=== PATIENT | female | born 1945 | race Caucasian/White ===

== ENCOUNTER 2021-10-10 13:41 | Outpatient (CLI) | payer MEDICARE, SELFPAY ==
--- OUTSIDE RECORDS SUMMARY | 2021-08-11 09:53 | XMS_ITS | Continuity of Care Document ---
:1945 Author Care Team Providers Name Role Phone MD Cynthia E Attending Physician MD Farhat W Primary Care Physician Chief Complaint and Reason for Visit Chief Complaint Abdominal Pain (Female) Reason for Visit [id number] r/o sepsis r/o uti dehydration Health Concerns Concerns Review problems and other documentation throughout for Health Concerns. Allergies, Adverse Reactions, Alerts Allergen Type Severity Reaction Last Verified Status Updated Meperidine Allergy Severe convulsions, July 13, Yes Active SOB, RASH 2021 Metronidazole Allergy Severe urticaria and July 13, Yes Ac tive pruritis 2021 Morphine Allergy Severe DIFFICULTY July 13, Yes Active BREATHING, RASH 2021 Penicillin v Allergy Unknown RASH, SOB July 13, Yes Active 2021 Pseudoephedrine Adverse Moderate jittery, heart July 13, Yes Active Reaction palpatations 2021 Loratadine Adverse Moderate jittery, heart July 13, Yes Acti ve Reaction palpatations 2021 Paroxetine Adverse Unknown dyspnea July 13, Yes Active Reaction 2021 Latex Allergy Moderate RASH, ITCHY, July 13, Yes Active STATES SKIN 2021 PEELS OFF Sulfa drugs Allergy Unknown RASH, SOB July 13, Yes Active 2021 Social History Smoking Status Status Start Date End Date Date of Observat ion Ex-smoker (finding) July 13 3:33pm Observation Status Observation Response Date of Response History provided by Patient April 22, 2017 2:05 pm Where do you live? Own home/apt April 22, 2017 2:05 pm With whom do you live? Spouse April 22, 2017 2 :05pm Specify additional service THERAPY WILL WORK WITH PATIENT Se pt2020 1:44pm needs Specify additional assistance granddaughter is also staying October 19, 2020 1:44pm needed with them to help as needed Additional Data Assigned Sex Female Problems Active Problems Medical Problem Onset Date Status Osteoporosis February 09, 2009 Active Scoliosis Active Subclinical hypothyroidism Resolved Prolonged Q-T interval on ECG Active Fatty infiltration of liver Active Post traumatic stress disorder Active (PTSD) Generalized anxiety disorder with Active panic attacks Tubular adenoma of colon Active Healthcare maintenance Active Status post hysterectomy February 09, 2009 Resolved s p removal cysts breast February 09, 2009 Resolved History of surgical removal of Resolved ganglion cyst History of tympanoplasty of right Resolv ed ear History of bilateral cataract Resolved extraction History of partial colectomy Resolved History of appendectomy 2017 Resolved History of total hip arthroplasty Resolv ed Medications Medication Status Dose Units Route Directions Qty Days Start End Ins tructions Date Date Acetaminophe Active 500-1 MG PO Every 6 Sept n 000 Hours as er , needed 2020 7:28am Cholecalcife Active 2000 UNIT OR Daily rol (Vitamin D3) 2,000 Unit CAP Lactobacillu Active 1 CAP PO Daily s (Azo Dual Protection Urina) 1 Cap CAP Lorazepam Active 0.5 MG PO Twice A Day 40 Februar as needed y 2021 4:31pm Menaquinone- Active 100 MCG PO Daily 7 (Vitamin K2) 100 Mcg CAP Acetaminophe Disconti 1-2 TAB PO Every 4-6 15 Novembe Dece mb n W/ Codeine nued Hours as r 6th, er (Codeine/Samir needed 2018 05, taminophen) 3:48pm 2018 1 Tab TAB 12:44p m Albuterol Disconti 1-2 PUFF INH Every 4 April (Ventolin nued Hours as er , Hfa) 90 Mcg needed 2017 DOSE 2016 8:02am 4:06pm Albuterol Disconti 2 PUFF INH Every 4 April Sulfate nued Hours as , (Proair Hfa) needed 2019 2021 90 Mcg/Puff 9:49am 3:26pm INH Alprazolam Disconti 1-2 TAB PO Every 6-8 September nued Hours as 1st, y needed 2016, 2:47pm 2017 3:47pm Alprazolam Disconti 1-2 TAB PO Every 6-8 September nued Hours as y 1st, 1st, needed 2016 2016 11:46am 2:47pm Alprazolam Disconti 1-2 TAB PO Every 6-Augustua nued Hours as , ry needed 2015 02, 12:07pm 2016 11:46a m Alprazolam Disconti 1-2 TAB PO Every -November nued Hours as , , needed 2014 2015 5:29pm 12:07p m Alprazolam Disconti 1-2 TAB PO Every -Novemberobe nued Hours as , r needed 2014, 3:00pm 2014 5:29pm Alprazolam Disconti 1-2 TAB PO Every -Novemberobe nued Hours as , r needed 2013, 11:09am 2014 3:00pm Alprazolam Disconti 1-2 TAB PO Every -Aprilobe nued Hours as , r needed 2013, 2:49pm 2013 11:09a m Alprazolam Disconti 1-2 TABS PO Three Times June nued A Day as , , needed 2012 2013 9:55am 2:11pm Aspirin Disconti 81 MG PO Twice A Day For deep vein clot prevention post-surgery. Start this nued er , r medication a fter completing Rivaroxaban. Take twice daily. 2020 14, 7:28am 2020 1:50pm Aspirin Disconti 81 MG PO Daily 100 nued y 2018 3:04pm Aspirin Disconti 81 MG PO Daily April nued 2017 8:02am Aspirin Disconti 81 MG PO Daily 100 Decemb nued er 2016 3:37pm Azithromycin Disconti 250-5 MG PO Daily 5 00 mg x 1 nued 00 er day then 250 , mg daily x 4 2015 2016 days 4:06pm 11:16a m Azithromycin Disconti 250 MG PO As Directed Ju ly 2 tabs today nued y , then 1 tab 2011 2011 daily x 4 1:42pm 9:59am days. Azithromycin Disconti 0 PO Daily May TAKE 500 MG (Zithromax) nued , , DAY ONE 250 Mg TAB 2010 2010 FOLLOWED BY 1:34pm 1:11pm 250 MG DAILY FOR 4 MORE DAYS Azithromycin Disconti 0 PO Daily Decembe Decemb T DARIANA 500 MG (2 TABLETS) BY MOUTH TODAY, THEN 250 MG (1 TABLET) BY (Zithromax) nued r , er MOUTH ONCE DAILY FOR 4 MORE DAYS. 250 Mg TAB 2008, 9:46am 2008 9:17am Bupropion Disconti 150 MG PO Daily Januar Hcl nued r , y (Bupropion 2016, Hcl Xl (24 3:46pm 2018 Hr)) 150 Mg 3:47pm TABCR Calcium/Ely Disconti 2 EA PO Daily September D nued 2011 1:11pm Cefdinir Disconti 300 MG PO Twice Daily November nued For 7 Days , er 2018 06, 4:14pm 2018 2:27pm Cephalexin Disconti 500 MG PO Three Times August nued A Day , tiarra 2018, 11:23pm 2018 2:00pm Cholecalcife Disconti 2000 UNIT PO Daily rol (Vitamin nued er D) 2,000 4th, Unit TAB 2018 2:17pm Cholecalcife Disconti 2000 UNIT PO Daily April rol (Vitamin nued 5th, D) 1,000 2017 Unit TAB 8:02am Cholecalcife Disconti 1000 UNIT PO Daily September rol (Vitamin nued 10th, D3) 1,000 2011 Unit TAB 1:11pm Cholestyrami Disconti 4 GM PO Daily as June 4 grams daily (can divide dose into 1-3x/day); adjust as ne nued needed , , needed. 2020 2020 3:54pm 2:23pm Cholestyrami Disconti 2-4 GM PO Daily as June ne nued needed , 2018 1:45pm 3:02pm Ciprofloxaci Disconti 2-4 DROP AFFEAR Tid X 7 July TO AFFECTED n Hcl nued Days 8th, , EYE(S) (Ciprofloxac 2016 2017 in Ophth 9:07am 2:15pm Soln) 0.3 % DWIGHT Ciprofloxaci Disconti 500 MG PO Twice A Day 6 Novembe No vemb n Hcl nued r 8th, er (Cipro) 500 2013, Mg TAB 10:25am 2013 2:29pm Ciprofloxaci Disconti 500 MG PO Twice A Day November brua n Hcl nued 4th, ry (Cipro) 500 2012, Mg TAB 12:01pm 2013 11:48a m Coenzyme Q10 Disconti 10 MG PO Daily June (Ubidecareno nued 16, ne) (Co Q 2010 11) 10 Mg 1:11pm CAP Covid-19 Disconti 30 MCG IM Once 1 Novem (Sars-Cov-2) nued r 30, er Mrna Vir 2020, (Pfizer-Bion 11:34am 2020 tech 11:36a Covid-19) 30 m Mcg/0.3 Ml INJ Cranberry Disconti 2 CAPSULE OR Daily (Vaccinium nued er Macrocarp 4th, (Cranberry 2018 Extract) 200 2:17pm Mg CAP Cranberry Disconti 2 CAPSULE OR Daily April (Vaccinium nued 5th, Macrocarp 2018 (Cranberry 8:02am Extract) 200 Mg CAP Cranberry-Vi Disconti 1 C OR Septem tamin nued tiarra C-Vitamin E , (Cranberry 2020 Plus Vitamin 1:38pm C) C CAP Cyclobenzapr Disconti 5 MG PO Bedtime as Mar charity ine Hcl nued needed er ry 27, , 2015 2016 2:06pm 11:16a m Diphtheria/T Disconti 0.5 ML IM Once June etanus/Acell nued , 16, Pertussis 2010 2010 (Adacel) 0.5 1:28pm 2:03pm Ml INJ Docusate Disconti 100 MG PO Daily June Sodium nued , (Colace) 100 2018 Mg CAP 1:27pm Doxycycline Disconti 100 MG PO Twice Daily February charity Hyclate nued For 7 Days , ry 2018 4th, 3:39pm 2018 11:59a m Doxycycline Disconti 100 MG PO Twice Daily February uar Hyclate nued For 7 Days , y 2018 3:38pm 3:39pm Duloxetine Disconti Januar Hcl nued y 2018 3:04pm Enoxaparin Disconti 80 MG SUBQ Twice A Day 10 Februa Sodium nued ry (Lovenox) 80 2nd, Mg/0.8 Ml 2017 SOLN 3:29pm Enoxaparin Disconti 80 MG SUBQ Twice A Day 3 Dece mb Sodium nued er er (Lovenox) 80 , , Mg/0.8 Ml 2016 2016 SOLN 10:19pm 3:37pm Erythromycin Disconti 500 MG OR Three Times 6 1 Februar [employer] nued A Day y , 2017 3:49pm 8:02am Estradiol Disconti 1 GRAMS PV Twice .5 June Apply thin (Estrace nued Weekly , , layer to Vaginal 2020 2020 affected are a Cream) 0.1 3:54pm 2:23pm twice a week. Mg/Gm CRE Estradiol Disconti 0.5 MG VA As Directed May 0 .5mg vaginally nightly x 2weeks; then 0.5mg twice a week x Vaginal nued , 14, 8 months. (Estradiol) 2018 2018 0.1 Mg/Gm 4:27pm 1:30pm CRE Flaxseed Disconti 1000 MG PO Daily September (Linseed) , (Flax Seed 2012 Oil) 1,000 1:11pm Mg CAP Sharon Disconti 550 MG OR Daily (Zingiber nued er Officinalis) , (Sharon 2019 Root) 550 Mg 2:17pm CAP Sharon Disconti 550 MG OR Daily April (Zingiber nued , Officinalis) 2017 (Sharon 8:02am Root) 550 Mg CAP Hyoscyamine Disconti 0.125 MG SL Every 4 30 Februa PO /SL Sulfate nued Hours as ry needed 2017 3:00pm Hyoscyamine Disconti 0.125 MG PO Every 4 Decemb Sulfate nued Hours as er 2nd, er (Levsin) needed 2016 02, 0.125 Mg TAB 3:55pm 2016 3:37pm Hyoscyamine Disconti 0.375 ER OR Twice A Day November Sulfate nued as needed (Hyoscyamine 2014 27th, Sulfate Er) 11:23am 2016 0.375 Er TAB 1:44pm Influenza A Disconti 0.5 ML IM Once 1 Novembe Novemb (H1n1) nued r 5th, er Monoval 2008 5th, Vaccine 6:00pm 2009 (Influenza A 6:04pm (H1n1) Vaccine) INJ Influenza Disconti 0.5 ML IM Once 1 Novembe Novemb Virus Vac nued r 4th, er Recomb Hem 2018 4th, (Flublok 3:21pm 2018 Quadrivalent 3:23pm 2018 0.5 Ml) 1 Inj INJ Influenza Disconti 0.5 ML IM Once Novemberobe Virus Vacc nued 14th, r Triv Types 2009 14th, A&B (Fluarix 3:51pm 2009) 0.5 4:12pm Ml INJ Influenza Disconti 0.5 ML IM Once 1 Novembe Novemb Virus Vacc nued r 5th, er Triv Types 2008 5th, A&B (Fluzone 6:00pm 2008 (Pres-Free) 6:04pm Over 36 Month) 0.5 Ml SYR Influenza Disconti 0.5 ML IM Once Februaryuar Virus Vacc nued 2nd, y 2nd, Triv Types 2008 2008 A&B 11:41am 11:45a (Fluarix) m 0.5 Ml INJ Influenza Disconti 0.5 ML IM Once 1 Novembe Novemb Virus Vacc nued r 26th, er Triv Types 2006th, A&B 3:27pm 2006 (Fluarix) 5:18pm 0.5 Ml INJ Influenza Disconti 0.5 ML IM Once 1 Novembe Novemb Virus nued r 8th, er Vaccine 2010 09, (Fluzone Pf 2:30pm 2010 [id number] 2:33pm (0.5 Ml)) 0.5 Ml INJ Influenza Disconti 0.5 ML IM Once Februaryuar Virus nued 8th, y 8th, Vaccine 2018 2018 Split 3:52pm 3:53pm (Afluria Pf [id number] 0.5 Ml) 1 Inj INJ Influenza Disconti 0.5 ML IM Once 1 Novembe Novemb Virus nued r 21st, er Vaccine 2016, Split 4:03pm 2016 (Fluzone 4:13pm Quadrivalent 2016 0.5 Ml) 1 Inj INJ Influenza Disconti 0.5 ML IM Once Novemberobe Virus nued , r Vaccine 2014, Split 3:22pm 2014 (Fluzone 3:30pm Quadrivalent (3 Yrs And Older)2014- 6) 1 Inj INJ Influenza Disconti 0.5 ML IM Once Novemberobe Virus nued , r Vaccine 2013, Split 11:56am 2013 (Fluzone 11:59a High-Dose m (65 Yrs And Older) 2013-) 1 Inj INJ Influenza Disconti 0.5 ML IM Once Virus nued er tiarra Vaccine , , Split 2012 2012 (Fluzone (3 11:17am 11:20a Years And m Older) [id number]) 1 Ml INJ Influenza Disconti 0.5 ML IM Once Novemberobe Virus nued , r Vaccine 2011, Split 3:25pm 2011 (Fluzone Pf 3:26pm [id number] (0.5 Ml)) 0.5 Ml INJ Levofloxacin Disconti 500 MG PO Daily June (Levaquin) , ry 500 Mg TAB 2010, 1:34pm 2011 1:12pm Levothyroxin Disconti 25 MCG PO Daily e Sodium nued y (Synthroid) , 25 Mcg TAB 2017 3:47pm Levothyroxin Disconti 25 MCG PO Daily e Sodium nued er 2016 3:37pm Levothyroxin Disconti 25 MCG PO Daily June e Sodium nued 2016 9:59am 10:46a m Levothyroxin Disconti 25 MCG PO Daily May e Sodium nued 2016 4:06pm 9:59am Levothyroxin Disconti 25 MCG PO Daily May e Sodium nued y 2016 4:22pm 4:06pm Levothyroxin Disconti 1 TAB PO Daily e Sodium nued er er (Synthroid) , , 75 Mcg TAB 2007 2008 11:48am 9:30am Levothyroxin Disconti 1 TAB PO Daily August e Sodium nued , (Synthroid) 2007 2007 75 Mcg TAB 8:40am 4:15pm Levothyroxin Disconti 1 TAB PO Daily July e Sodium nued , 16, (Synthroid) 2007 2007 75 Mcg TAB 10:01am 8:40am Levothyroxin Disconti 1 TAB PO Daily 17 August e Sodium nued , (Synthroid) 2007 75 Mcg TAB 1:48pm Loperamide Disconti 4 MG PO Daily Januar Hcl nued y (Imodium) 2 , Mg CAP 2020 1:32pm Loratadine & Disconti 1 TAB PO Daily as November m Pseudoephedr nued needed , tiarra ine 2014, (Claritin-D 5:29pm 2015 24 Hour) 1 3:46pm Tab TAB Loratadine & Disconti 1 TAB PO Daily as Novemberob e Pseudoephedr nued needed , r ine 2014, (Claritin-D 3:00pm 2014 24 Hour) 1 5:29pm Tab TAB Loratadine & Disconti 1 TAB PO Daily as Juneobe Pseudoephedr nued needed , r ine 2013, (Claritin-D 5:05pm 2014 24 Hour) 1 3:00pm Tab TAB Loratadine & Disconti 1 TAB PO Daily as April Pseudoephedr nued needed , ine 2013 2013 (Claritin-D 2:49pm 5:05pm 24 Hour) 1 Tab TAB Loratadine & Disconti 1 TAB PO Daily as June Pseudoephedr nued needed , , ine 2012 2013 (Claritin-D 9:39am 2:49pm 24 Hour) 1 Tab TAB Loratadine & Disconti 1 TAB PO Daily 90 uar September Pseudoephedr nued y , , ine 2011 2011 (Claritin-D 1:50pm 1:11pm 24 Hour) 1 Tab TAB Loratadine & Disconti 1 TAB PO Daily Februa Pseudoephedr nued r , ry ine 2010, (Claritin-D 10:12am 2011 24 Hour) 1 1:50pm Tab TAB Loratadine & Disconti 1 TAB PO Daily Mayb Pseudoephedr nued , er ine 2010, (Claritin-D 1:34pm 2010 24 Hour) 1 10:12a Tab TAB m Loratadine & Disconti 1 TAB PO Daily June Pseudoephedr nued r , , ine 2008 2010 (Claritin-D 9:36am 1:11pm 24 Hour) 1 Tab TAB Loratadine & Disconti 1 TAB PO Daily June Pseudoephedr nued 2010 (Claritin-D 1:11pm 24 Hour) 1 Tab TAB Lorazepam Disconti 0.5 MG PO Twice A Day Juneobe nued as needed r 2020, 6:19pm 2020 6:49pm Lorazepam Disconti 0.5 MG PO Twice A Day February nued as needed , , 2020 2020 1:56pm 6:18pm Lorazepam Disconti 0.5 MG PO Twice A Day November r nued as needed 2019, 12:19pm 2020 1:55pm Lorazepam Disconti 0.5 MG PO Twice A Day June nued as needed r 2019, 4:47pm 2019 12:19p m Lorazepam Disconti 0.5 MG PO Twice A Day 40 June nued as needed r 2018 10:31am 4:47pm Lorazepam Disconti 0.5 MG PO Twice A Day September Dece nued as needed , er 2018, 8:40am 2018 10:30a m Lorazepam Disconti 0.5 MG PO Twice A Day 40 t nued as needed r , 2017 5:07pm 8:40am Lorazepam Disconti 0.5 MG PO Twice A Day July Decemb nued as needed , er 2017, 10:55am 2017 5:07pm Lorazepam Disconti 0.5 MG PO Twice A Day February nued as needed 2017 4:24pm 10:55a m Metronidazol Disconti 500 MG PO Twice A Day 07 May Gaetano h e (Flagyl) nued , 500 Mg TAB 2016 2016 12:37am 4:31pm Moxifloxacin Disconti 400 MG PO Daily 27 April Hcl nued 2017 8:02am Moxifloxacin Disconti 400 MG PO Daily 27 September Decemb Ta ke at start of diverticulitis; if worsening go to nearest [facility] nued , er ER. 2016 02, 2:44pm 2016 3:37pm Moxifloxacin Disconti 400 MG PO Daily June Fuentes e at start of diverticulitis; if worsening go to nearest [facility] nued , , ER. 2016 2016 12:23pm 2:44pm Moxifloxacin Disconti 400 MG PO Daily April Hcl nued , , 2016 2016 3:06pm 8:44am Neomycin Disconti 500 MG PO Three Times 6 April Sulfate nued A Day y 2017 3:49pm 8:02am Nitrofuranto Disconti 100 MG PO Twice A Day November cemb 1 cap by in banner , er mouth twice a Macrocrystal 2016 02, day x 7 days. 2:21pm 2016 3:37pm Nitrofuranto Disconti 100 MG PO Twice A Day June em in ed , tiarra Monoh/Nitrof 2020 08, ur Macro 3:50pm 2020 (Nitrofurant 1:38pm oin Monohydrate/ Macrocrystal line) 100 Mg CAP Nitrofuranto Disconti 100 MG PO Twice A Day 23 February Fe brua in ed , ry Monoh/Nitrof 2020 11, ur Macro 2:50pm 2020 (Macrobid) 3:34pm 100 Mg CAP Nitrofuranto Disconti 100 MG PO Twice A Day 03 March Ja nuar in ed , y Monoh/Nitrof 2020, ur Macro 1:49pm 2020 (Macrobid) 2:50pm 100 Mg CAP Nitrofuranto Disconti 100 MG PO Twice A Day Ja nuar in banner r , y Monoh/Nitrof 2019, ur Macro 12:05pm 2020 (Macrobid) 1:22pm 100 Mg CAP Nitrofuranto Disconti 100 MG PO Twice A Day 10 Novembe No vemb in banner r , er Monoh/Nitrof 2019, ur Macro 3:48pm 2019 (Macrobid) 12:05p 100 Mg CAP m Nitrofuranto Disconti 100 MG PO Twice A Day 10 5 Februar Ma rch in nued y , , Monoh/Nitrof 2018 2018 ur Macro 4:25pm 10:35a (Nitrofurant m oin Monohydrate/ Macrocrystal line) 100 Mg CAP Nitrofuranto Disconti 100 MG PO Twice A Day 10 5 Februar Fe brua in nued y , ry Monoh/Nitrof 2018 12, ur Macro 3:57pm 2018 (Nitrofurant 4:25pm oin Monohydrate/ Macrocrystal line) 100 Mg CAP Nitrofuranto Disconti 100 MG PO Twice A Day 10 5 Februar Fe brua in nued y , ry Monoh/Nitrof 2018 12, ur Macro 12:24pm 2018 (Nitrofurant 3:57pm oin Monohydrate/ Macrocrystal line) 100 Mg CAP Nitrofuranto Disconti 100 MG PO Twice A Day 14 April in nued , , Monoh/Nitrof 2017 2017 ur Macro 3:51pm 10:41a (Macrobid) m 100 Mg CAP Nitrofuranto Disconti 100 MG PO Twice A Day 14 uar Fe brua in nued y , ry Monoh/Nitrof 2018 01, ur Macro 4:04pm 2017 (Macrobid) 3:00pm 100 Mg CAP Nitrofuranto Disconti 100 MG PO Twice A Day February brua in nued , ry Monoh/Nitrof 2017 03, ur Macro 4:17pm 2017 (Macrobid) 3:29pm 100 Mg CAP Nitrofuranto Disconti 100 MG PO Twice A Day 10 Decembe Ja nuar in nued r , y Monoh/Nitrof 2016, ur Macro 12:26pm 2017 (Macrobid) 3:47pm 100 Mg CAP Nitrofuranto Disconti 100 MG PO Twice A Day 10 Decembe De cemb in nued r , er Monoh/Nitrof 2016 06, ur Macro 4:04pm 2016 (Macrobid) 12:26p 100 Mg CAP m No Home Meds Disconti 2012 10:37a m Ofloxacin Disconti 4 DROP OT Twice A Day Juneua (Otic) nued , 2010, 1:34pm 2011 1:12pm Ofloxacin Disconti 4 DROP OT Twice A Day May (Otic) nued , , 2010 2010 1:34pm 1:11pm [place]-3 Disconti 1200 MG PO Daily April Fatty Acids nued , (Fish Oil) 2017 1,200 Mg CAP 8:02am Ondansetron Disconti 4 MG PO Every 4-6 Janua r for nausea Hcl nued Hours as r 6th, y 2nd, needed 2018 2019 3:50pm 1:18pm Ondansetron Disconti 8 MG PO Every 8 uaapril Hcl (Zofran) nued Hours as y , , 8 Mg TAB needed 2017 2017 3:49pm 4:10pm Oseltamivir Disconti 75 MG PO Twice A Day April b Phosphate nued , er (Tamiflu) 2019, Mg CAP 9:49am 2019 3:29pm Oxycodone Disconti 2.5-5 MG PO Every 4-6 42 Sept Octobe As needed for pain: 2.5 mg mild-moderate pain, 5 mg severe. Hcl nued Hours as er 9, r Minimize, wean-off, discontinue as soon as possible. (Oxycodone needed 2020, Hydrochlorid 7:28am 2020 e) 5 Mg TAB 1:50pm Phenazopyrid Disconti 100 MG PO Three Times April ine Hcl nued A Day as , (Pyridium) needed 2017 2017 100 Mg TAB 2:19pm 10:41a m Pneumococcal Disconti 0.5 ML IM Once 1 Februar Februa Polyvalent nued y , ry Vaccine 2017, (Pneumovax 3:03pm 2017 23) 25 3:28pm Mcg/0.5 Ml INJ Pneumococcal Disconti 0.5 ML IM Once 1 Februar Februa Polyvalent nued y , ry Vaccine 2016 02, (Prevnar 13) 11:37am 2016 0.5 Ml INJ 12:03p m Prednisone Disconti 20 MG PO Daily 5 Sept Februa nued er ry , , 2015 2016 4:06pm 11:16a m Probiotic Disconti 1 CAP PO Daily Septem Product nued tiarra (Probiotic) CAP 2020 1:38pm Rivaroxaban Disconti 10 MG PO Daily 4 Octobe Me dication for deep vein clot prevention post-surgery. (Xarelto) 10 nued er , r Compl ete this medication before starting Aspirin. Mg TAB 2020, 7:28am 2020 1:50pm Senna/Docusa Disconti 1 TAB PO Twice A Day 60 Sept Oc alicia Hold te Sodium nued er , r medicati on if (Senna S) 2020, experienci ng 8.6 Mg/50 Mg 7:28am 2020 loose stools. TAB 1:50pm Sertraline Disconti 25 MG PO Daily 17 July Septem Hcl nued , tiarra 2012, 9:55am 2012 10:57a m Tetanus-Diph Disconti 0.5 ML IM Once September theria nued , , Toxoids (Td 2020 2020 (Tetanus/Dip 2:36pm 3:33pm htheria Toxoid) 1 Ml INJ Vancomycin Disconti 125 MG PO Four Times 40 May Hcl nued Daily , , 2020 2020 4:54pm 3:31pm Vancomycin Disconti 125 MG PO Qid X 14 56 Novemb Hcl nued Days er er , , 2019 2019 12:22pm 3:29pm Vancomycin Disconti 125 MG PO Qid X 14 April Septem Hcl nued Days , 2019, 3:20pm 2019 12:22p m Vancomycin Disconti 125 MG PO Qid X 14 April 1 capsule by mouth twice a day x one week; then 1 capsule Hcl nued Days y , , by mouth crow ly x one week. 2019 2019 12:33pm 3:20pm Vancomycin Disconti 125 MG PO Qid X 14 40 February Hcl nued Days , ry 2019 12, 12:30pm 2019 12:33p m Vancomycin Disconti 125 MG PO Four Times 40 Februaryua r Hcl nued Daily y 2019, 9:19am 2019 12:30p m Vancomycin Disconti 125 MG PO Four Times 40 Janua r Hcl nued Daily r y 2018 11:39am 9:19am Vit B Disconti 1 Daily Sherin Complex nued 2011 9:59am Wheat Disconti 1 TBS PO Twice A Day Novemb Dextrin nued er (Benefiber) 2019 3:29pm Zostavax Disconti 0.65 ML SUBQ Once 1 Februar Februa nued y 2014, 3:24pm 2014 3:25pm Immunizations Immunization Event Date Not Given Dose Mental Health Program Director Lot Vac cine Reason Number Number Informatio n Statement (VIS) Deta il COVID-19 Pfizer March 21 PFIZER-BIO [id number] 2020 COVID-19 Pfizer April 30 PFIZER-BIONTECH [id number] 2020 COVID-19 Pfizer December 21 PFIZER-BIO [id number] 2020 Herpes Zoster March 21 MERCK [id number] 2014 Influenza February 19 sanofipastuer [id number] 2008 Influenza December 20 glaxo [id number] 2008 Influenza November 3 Glaxosmithkline [id number] 2009 Influenza December 22 Sanofi Pasteur [id number] 2010 Influenza November 22 Sanofi Pasteur [id number] 2011 Influenza October 6 Sanofi [id number] 2012 Influenza November 24 Sanofi Pasteur [id number] 2013 Influenza November 25 Sanofi [id number] 2014 Influenza December 28 Sanofi [id number] 2016 Influenza February 25, SEQIRUS [id number] 2018 Influenza December 30 SANOFI [id number] 2018 Influenza January 26 [id number] 2015 Influenza November 22 [id number] 2019 Influenza December 19 Flublock 2018 Prevnar Adult March 21 WYETH [id number] 2016 Pneumovax Adult March 21 MERCK [id number] 2017 Tetanus/Dipther October 17, GRIFOLS [id number] 2020 Tdap July 03 SANOFI [id number] (adolescent/beck 2010 lt) Medical Equipment Device Date Implanted Device Details PINNACLE GRIPTION October 26, 2020 [place]YTON: [id number] Issuing Agency: [facility] Device Id: [id number] Expiration Date: 02-24-30 Lot Number: [id number] PINNACLE October 26, 2020 PAYTON: [id number] Issuing Agency: [facility] Device Id: [id number] Expiration Date: 09-22-30 Lot Number: [id number] PINNACLE ALTRX October 26, 2020 [place]YTON: [id number] Issuing Agency: [facility] Device Id: [id number] Expiration Date: 07-19-30 Lot Number: [id number] APEX October 26, 2020 PAYTON: [id number] Issuing Agency: [facility] Device Id: [id number] Expiration Date: 02-23-29 Lot Number: [id number] BIOLOX DELTA October 26, 2020 [place]YTON: [id number] Issuing Agency: [facility] Device Id: [id number] Expiration Date: 07-21-30 Lot Number: [id number] ACTIS October 26, 2020 PAYTON: [id number] Issuing Agency: [facility] Device Id: [id number] Expiration Date: Lot Number: [id number] Procedures Procedure Date Performed Status LIPID PANEL July 13, 2021 completed Relevant Diagnostic Tests and/or Laboratory Data Laboratory Results Test Date/Time Result Interpretation Reference Result Perfo rming Range Comment Site Cholesterol July 13, 240 90-199 [facility] Lab Level 2021 4:10pm [address] [facility] [address] Triglycerides July 13, 90 40-149 [facility] Lab Level 2021 4:10pm [address] [facility] [address] LDL Cholesterol July 13, 89 <100 [facility] Lab 2021 4:10pm [address] [facility] [address] HDL Cholesterol July 13, 133 >=50 [facility] 2021 4:10pm [address] [facility] [address] Vital Signs Vital Reading Result Reference Range Collection Date/ Time Height 65 [in_i] July 13, 2021 3 :24pm Height 165.1 cm July 13, 2021 3 :24pm Weight 160 [lb_av] July 13, 2021 3 :24pm Weight 72.720182 kg July 13, 2021 3 :24pm Body Temperature 97.1 [degF] July 13, 2021 3:24pm Body Temperature 36.17 Violet July 13, 2021 3:24pm BP Systolic 158 mm[Hg] July 13, 2021 3 :24pm BP Diastolic 84 mm[Hg] July 13, 2021 3 :24pm Heart Rate 88 /min July 13, 2021 3 :24pm Respiratory rate 16 /min July 13, 2021 3:24pm Body surface area 1.80 m2 July 13, 2021 3:24pm BMI (Body Mass Index) 26.6 kg/m2 July 13, 2021 3:24pm Height 0 [in_i] July 13, 2021 3 :59pm BP Systolic 134 mm[Hg] July 13, 2021 3 :59pm BP Diastolic 76 mm[Hg] July 13, 2021 3 :59pm Advance Directives Advance Directive Response Recorded Date/Time Does Pt have Health Care No December 13 015 1:33pm Directive? Has patient completed a No July 13, 2021 3 :33pm Health Care Directive? Insurance Providers Guarantor Piyush Wolf Address [address] [place] [address] [facility][[phone]] [id number] Contact Info. Home Phone: CELL Payer Policy Id Coverage Id Subscriber's Subscriber Effective Expi ration Name Id Date Date [facility] [id number] [place], Medicare Charyl L Complete Encounters Encounter Location(s) Arrival/Admit Date Discharge/Depart Date Provider(s) Registered [place] July 13, 2021 [facility] 3:55pm Sylvia Jones MD Registered [facility] July 13, 2021 [place], [facility] 3:30pm Sylvia Jones MD Office Visit [facility] July 13, 2021 [facility], [facility] 3:30pm Sylvia Jones MD Medicine Recent Diagnosis Onset Date Generalized anxiety disorder with panic attacks Healthcare maintenance Osteoporosis Screening for lipid disorders Screening for breast cancer Tubular adenoma of colon Functional Status Observation Response Date Recorded Functional Status Assist w/Toileting October 27, 2020 12:54pm Mental Status Observation Response Date Recorded Cognitive Status Alert October 19, 2020 1:35pm Oriented October 19, 2020 1:35pm Assessments Dictation done with voice recognition, and as a result, wrong word or [id number] substitutions may have occurred. There may be errors in the script that have gone undetected. Please consider this when interpreting information found in this chart. Plan of Treatment Instructions from visit on: 07/13/21 Please follow the provider's instructions as discussed during your visit. Future Tests Future scheduled test information is unavailable Pending Tests Pending diagnostic test information is unavailable Future Visits Future appointment information is unavailable Referrals to Other Providers Reason for Referral Referral Start Provider Provider Contact Pr ovider Address Date Information Lizette is going on vacation for a couple of weeks. She will make her own [employer] Work Phone: [facility] dermatology appointment. I gave her Dr. Cope's name and melisa bazzi number and [phone] gave her directions. [facility] [place] [address] Lizette is going on vacation for a couple of weeks. She will make her own [facility] appointment. I gave her Dr. Cope's name and te junehone number and gave her directions. Future Procedures Procedure Name Scheduled Date RITA Bilat Mammo Scrn Future Medications Future medication information is unavailable Patient Instructions Acetaminophen (By mouth) Aspirin (By mouth) Oxycodone, Rapid Release (By mouth) Rivaroxaban (By mouth) Senna (By mouth) Anterior Hip Replacement (DC) Goals Ambulatory Goals Reach or maintain optimal well being.
--- NOTE | 2021-10-10 14:00 | CRLHL7_ITS ---
For Patients: As a result of the Century Cures Act, medical imaging exams and procedure reports are released immediately into your electronic medical record. You may view this report before your referring provider. If you have questions, please contact your health care provider. BILATERAL DIGITAL SCREENING MAMMOGRAM WITH TOMOSYNTHESIS AND COMPUTER-AIDED DETECTION CLINICAL HISTORY: Routine screening exam. COMPARISON: 05/15/2018, 12/02/2015, 11/26/2013. TECHNIQUE: Digital mammogram in CC and MLO projections including computer-aided detection (CAD). Tomosynthesis utilized. BREAST COMPOSITION: There are areas of scattered fibroglandular density. FINDINGS: RIGHT Breast: No suspicious findings. LEFT Breast: Asymmetric density upper outer quadrant LEFT breast 2 cm from the nipple. IMPRESSION: LEFT breast asymmetry/mass. RECOMMENDATIONS: Additional mammographic views of the LEFT breast including 3D spot compression CC/MLO. LEFT breast ultrasound may also be required. [facility] will contact the patient for follow-up. BI-RADS Category 0: Incomplete: Need Additional Imaging Evaluation and/or Prior Mammograms for Comparison A lay language report of this examination will be provided to the patient. Dictated by Danny Dangelo MD @ 10/11/2021 9:01:38 AM jj/Dictated by: Danny Dangelo MD @ 10/11/2021 9:01:00 AM (Electronically Signed)
== END 2021-10-10 13:42 | disposition home or self-care (01) ==
LOC: MAMMO 13:45
PROVIDERS: Visit Provider Internal Medicine
DX: Z12.31 Encounter for screening mammogram for malignant neoplasm of breast (principal); N63.20 Unspecified lump in the left breast, unspecified quadrant
CPT/HCPCS: 77063; 77067

== ENCOUNTER 2021-10-26 10:50 | Outpatient (CLI) | payer MEDICARE, SELFPAY ==
--- NOTE | 2021-10-26 10:45 | CRLHL7_ITS ---
For Patients: As a result of the Cures Act, medical imaging exams and procedure reports are released immediately into your electronic medical record. You may view this report before your referring provider. If you have questions, please contact your health care provider. LEFT DIGITAL DIAGNOSTIC MAMMOGRAM WITH COMPUTER-AIDED DETECTION AND TOMOSYNTHESIS, 10/26/2021 LEFT BREAST ULTRASOUND, 10/26/2021 CLINICAL HISTORY: LEFT breast mass/asymmetry. COMPARISON: 10/10/2021. TECHNIQUE: Digital LEFT mammogram in two projections with computer-aided detection and tomosynthesis. Real-time ultrasound imaging of LEFT breast with imaging documentation. Scanning was performed by both the technologist and the radiologist. BREAST COMPOSITION: There are scattered areas of fibroglandular density FINDINGS: 3D spot compression CC/MLO LEFT mammograms submitted. Dense tissue noted in the upper outer quadrant without underlying architectural distortion. No adenopathy. No suspicious calcifications. Targeted LEFT breast ultrasound in the upper outer quadrant 2 cm from the nipple performed. At 2 o`clock 2 cm from the nipple there is an ill-defined area dense slightly hypoechoic tissue measuring 9 mm. IMPRESSION: Indeterminate area of dense and slightly hypoechoic tissue within the LEFT breast at 2 o`clock 2 cm from the nipple measuring 9 mm. RECOMMENDATIONS: Ultrasound-guided core needle biopsy recommended. BI-RADS: 4. Suspicious finding. Results and recommendations discussed with the patient. Dictated by Danny Dangelo MD @ 10/26/2021 11:53:47 AM JR/Dictated by: Danny Dangelo MD @ 10/26/2021 11:53:00 AM (Electronically Signed)
--- NOTE | 2021-10-26 11:15 | CRLHL7_ITS ---
For Patients: As a result of the Century Cures Act, medical imaging exams and procedure reports are released immediately into your electronic medical record. You may view this report before your referring provider. If you have questions, please contact your health care provider. PLEASE SEE LEFT DIAGNOSTIC MAMMOGRAM OF SAME DAY. CRL:allison GUEVARA/Dictated by: Danny Dangelo MD @ 10/26/2021 11:53:00 AM (Electronically Signed)
== END 2021-10-26 10:51 | disposition home or self-care (01) ==
LOC: MAMMO 10:52
PROVIDERS: Visit Provider Internal Medicine
DX: N63.20 Unspecified lump in the left breast, unspecified quadrant (principal); R92.8 Other abnormal and inconclusive findings on diagnostic imaging of breast
CPT/HCPCS: 76642; 77065; G0279

== ENCOUNTER 2021-11-03 08:54 | Outpatient (CLI) | payer MEDICARE, SELFPAY ==
--- NOTE | 2021-11-03 09:15 | CRLHL7_ITS ---
For Patients: As a result of the Century Cures Act, medical imaging exams and procedure reports are released immediately into your electronic medical record. You may view this report before your referring provider. If you have questions, please contact your health care provider. ULTRASOUND-GUIDED BREAST BIOPSY AND POST-BIOPSY DIGITAL MAMMOGRAM FOR BIOPSY MARKER PLACEMENT CLINICAL HISTORY: Indeterminate area of dense hypoechoic tissue. COMPARISON STUDIES: 10/26/2021. TECHNIQUE: Real-time ultrasound with image documentation was used for targeting the breast lesion. Core biopsy specimens were obtained using an automated gun with a 18-gauge biopsy needle. Post-biopsy CC and ML digital mammograms were obtained to document position of the biopsy marker. CONSENT and TIME OUT: The procedure, risks, and alternatives were explained to the patient and a consent was signed. [place] Protocol was followed including pre-procedure verification that relevant information/documentation was available, reviewed and properly matched to the patient; consent accurate and complete; and equipment and supplies available. Time Out was conducted just prior to starting procedure to verify the four required elements: patient identity, correct side/site marked (if applicable), procedure, relevant images/results properly labeled and displayed (if applicable). PROCEDURE: The patient was positioned supine on the ultrasound table. The breast was prepped with ChloraPrep. 8 cc 1 percent lidocaine used for local anesthesia. Core samples were obtained. A sterile metal biopsy clip was placed percutaneously to nathaniel the lesion position within the breast. The specimens were placed in 10% formalin and sent to the pathology department. Pressure was held on the biopsy site until all bleeding subsided. The skin incision was closed with Steri-Strips. An ice pack was positioned over the biopsy site. Post-biopsy instructions were reviewed with the patient, and a written copy was given to her. LATERALITY: LEFTbreast. LESION: Ill-defined hypoechoic area of decreased echogenicity measuring 9 millimeters at 3 o`clock 2 cm from the nipple. SUSPICION FOR MALIGNANCY: Low. NUMBER OF SAMPLES: 5. BIOPSY CLIP SHAPE: Coil. PROXIMITY OF CLIP TO TARGET: Within the lesion. IMPRESSION: Ultrasound-guided breast biopsy. When the pathology report is available, an addendum to this report will be made. ACR not applicable Dictated by Danny Dangelo MD @ 11/03/2021 10:14:02 AM/torito SHERMAN/Dictated by: Danny Dangelo MD @ 11/03/2021 10:14:00 AM ----- ADDENDUM ----- IMPRESSION: Pathology consistent with benign fragments of fibrous stroma. No evidence of atypia or malignancy. This is concordant. Recommend resuming routine annual bilateral screening mammography. Dictated by Danny Dangelo MD @ Nov 03 2021 10:14AM Signed by:?Danny Dangelo MD @11/03/2021 2:31:43 PM (Electronically Signed)
--- NOTE | 2021-11-03 09:45 | CRLHL7_ITS ---
For Patients: As a result of the Century Cures Act, medical imaging exams and procedure reports are released immediately into your electronic medical record. You may view this report before your referring provider. If you have questions, please contact your health care provider. PLEASE SEE LEFT ULTRASOUND-GUIDED BIOPSY OF SAME DAY. CRL:torito SHERMAN/Dictated by: Danny Dangelo MD @ 11/03/2021 10:14:00 AM (Electronically Signed)
== END 2021-11-03 08:55 | disposition home or self-care (01) ==
LOC: US 08:55
PROVIDERS: Visit Provider Internal Medicine
DX: N64.9 Disorder of breast, unspecified (principal); R92.8 Other abnormal and inconclusive findings on diagnostic imaging of breast
CPT/HCPCS: 19083; 77065; 88305; A4648; A4649

== ENCOUNTER 2022-09-24 13:52 | Outpatient (CLI) | payer MEDICARE, SELFPAY | END 2022-09-24 13:53 | disposition home or self-care (01) | PROVIDERS: PCP Family Medicine; Visit Provider Family Medicine | DX: Z01.818 Encounter for other preprocedural examination (principal); R35.0 Frequency of micturition; I10 Essential (primary) hypertension; E03.8 Other specified hypothyroidism | CPT/HCPCS: 80053; 84443; 87086; 87186 ==

== ENCOUNTER 2022-10-01 14:16 | Outpatient (CLI) | payer MEDICARE, SELFPAY | END 2022-10-01 14:17 | disposition home or self-care (01) | LOC: NFLDREF 10-02 20:22 | PROVIDERS: PCP Family Medicine; Referring Provider Family Medicine; Visit Provider Family Medicine | DX: N39.0 Urinary tract infection, site not specified (principal) | CPT/HCPCS: 87086; 87186 ==

== ENCOUNTER 2022-12-03 14:34 | Outpatient (CLI) | payer MEDICARE, SELFPAY ==
--- NOTE | 2022-12-03 15:00 | CRLHL7_ITS ---
For Patients: As a result of the Cures Act, medical imaging exams and procedure reports are released immediately into your electronic medical record. You may view this report before your referring provider. If you have questions, please contact your health care provider. BILATERAL SCREENING MAMMOGRAM WITH COMPUTER-AIDED DETECTION AND TOMOSYNTHESIS TECHNIQUE: CC and MLO views were obtained. These mammographic images have been obtained using full-field digital technique. These mammographic images were interpreted with the benefit of computer-aided detection. Breast Tomosynthesis was used in this interpretation. COMPARISON FILM: 10/26/21, 10/10/21, 05/15/18. FINDINGS: The breasts are heterogeneously dense, which may obscure small masses IMPRESSION: There is no radiographic evidence for malignancy. ASSESSMENT: BI-RADS Category 2: Benign RECOMMENDATION: Routine screening mammogram in 1 year. A lay language report of this examination will be provided to the patient. YULIANA JEFFERY M.D. Diagnostic/Nuclear Medicine Radiologist [email or web address] COLLIN:gabe Transcribed: 2:06 p.mAmor bernal/Dictated by: Yuliana Jeffery MD @ 12/04/2022 9:19:00 AM (Electronically Signed)
== END 2022-12-03 14:35 | disposition home or self-care (01) ==
LOC: MAMMO 14:34
PROVIDERS: PCP Family Medicine; Visit Provider Family Medicine
DX: Z12.31 Encounter for screening mammogram for malignant neoplasm of breast (principal); R92.2 Inconclusive mammogram
CPT/HCPCS: 77063; 77067

== ENCOUNTER 2023-03-14 15:55 | Outpatient (CLI) | payer MEDICARE, SELFPAY | END 2023-03-14 15:56 | disposition home or self-care (01) | PROVIDERS: PCP Family Medicine; Visit Provider Family Medicine | DX: I10 Essential (primary) hypertension (principal); E03.8 Other specified hypothyroidism; N39.0 Urinary tract infection, site not specified; B96.20 Unspecified Escherichia coli [E. coli] as the cause of diseases classified elsewhere; Z13.220 Encounter for screening for lipoid disorders | CPT/HCPCS: 80053; 80061; 82043; 82570; 84439; 84443; 87086; 87186 ==

== ENCOUNTER 2023-05-02 16:02 | Outpatient (CLI) | payer MEDICARE, SELFPAY | END 2023-05-02 16:03 | disposition home or self-care (01) | LOC: NFLDREF 05-03 06:56 | PROVIDERS: PCP Family Medicine; Referring Provider Family Medicine; Visit Provider Family Medicine | DX: R30.0 Dysuria (principal); N39.0 Urinary tract infection, site not specified | CPT/HCPCS: 87086; 87186 ==

== ENCOUNTER 2023-09-13 13:09 | Outpatient (CLI) | payer MEDICARE, SELFPAY | END 2023-09-13 13:10 | disposition home or self-care (01) | PROVIDERS: PCP Family Medicine; Visit Provider Family Medicine | DX: Z01.818 Encounter for other preprocedural examination (principal); E03.8 Other specified hypothyroidism; I10 Essential (primary) hypertension; K76.0 Fatty (change of) liver, not elsewhere classified | CPT/HCPCS: 80053; 84443; 87086 ==

== ENCOUNTER 2023-10-31 11:33 | Outpatient (CLI) | payer MEDICARE, SELFPAY | END 2023-10-31 11:34 | disposition home or self-care (01) | PROVIDERS: PCP Family Medicine; Visit Provider Family Medicine | DX: E03.8 Other specified hypothyroidism (principal); I10 Essential (primary) hypertension; N39.0 Urinary tract infection, site not specified | CPT/HCPCS: 80053; 84443; 87086 ==

== ENCOUNTER 2023-12-09 14:01 | Outpatient (CLI) | payer MEDICARE, SELFPAY | END 2023-12-09 14:02 | disposition home or self-care (01) | LOC: NFLDREF 12-12 07:59 | PROVIDERS: PCP Family Medicine; Referring Provider Family Medicine; Visit Provider Family Medicine | DX: N39.0 Urinary tract infection, site not specified (principal); Z01.818 Encounter for other preprocedural examination; M16.11 Unilateral primary osteoarthritis, right hip | CPT/HCPCS: 87086 ==

== ENCOUNTER 2023-12-25 09:49 | Day surgery (SDC) | payer MEDICARE, SELFPAY ==
[2023-12-25] VITALS (22 sets, daily range): BP systolic 93–150; BP diastolic 57–92; PULSE 52–80; RESP 12–16; TEMP 35.3–36.6; O2SAT 87–100; BMI 25.0
[2023-12-25] MEDS: SODIUM CHLORIDE 0.9 % (FLUSH) 10 ML SYRINGE IVF (10:32)
[2023-12-25] MEDS: ACETAMINOPHEN 500 MG TABLET 1000 MG PO ×2 (10:32→21:17)
[2023-12-25] MEDS: OXYCODONE (CR) 10 MG TAB.ER.12H PO (10:32)
[2023-12-25] MEDS: LACTATED RINGERS 1000 ML 1,000 ML 100 ML IV (10:33)
--- NOTE | 2023-12-25 11:12 | W.PM.H&PU ---
History & Physical Update History & Physical Update H&P Reviewed and patient assessed: No changes noted
[2023-12-25] MEDS: fentaNYL 100 MCG/2 ML inj IVP (11:56)
[2023-12-25] MEDS: MIDAZOLAM HCL 1 MG/ML inj IVP (11:56)
--- NOTE | 2023-12-25 12:06 | SUR.PREOP ---
TIME?OUT:?1156 PT/RN/MDA?VERIFICATION?OF?SURGICAL?SITE Right Hip,?PROCEDURE Nerve Block,?AND?CONSENT OBTAINED?PRIOR?TO?INVASIVE?PROCEDURE.
--- NOTE | 2023-12-25 12:08 | P.NB_ITS ---
Nerve Block Nerve Block Time Seen by Provider: 12:00 Date Seen: 12/25/23 Type of block requested by surgeon for post-operative analgesia: RONALDO/LFCN Side: right Time out performed: Yes Verification of patient name: Yes Verification of date of : Yes Site marking: not applicable Name of person performing procedure: Javier Saleem Continuous monitoring Was continuous monitoring of O2 sat, B/P, emc storage architect, recorded every 15 minutes?: Yes Procedure Checklist: sterile prep, needles and gloves Ultrasound guided. Images saved: Yes Medications given in 5ml increments after negative aspiration: Ropivicaine %: 0.5 mL: 25 Needle gauge: 20 Decadron (mg): 10 Precedex (mcg): 20 Patient tolerated procedure well: Yes Block Charges Block Charge (with Pro Fee): Femoral Nerve Use of Ultrasound Machine for Block: Yes- US Guidance/pain block
[2023-12-25 12:10] LABS: Hemoglobin* 15.4 gm/dL (12.0-16.0)
[2023-12-25] MEDS: CEFAZOLIN 2 GM in 0.9 % SODIUM CHLORIDE Mini-bag 100 ML IVPB (12:15)
[2023-12-25] MEDS: TRANEXAMIC ACID 100 MG/ML INJ 1000 MG IV (12:20)
--- NOTE | 2023-12-25 12:22 | XR_ITS ---
Patient: JOJO ALEJANDRO Facility:?[facility] Patient ID:?[id number] Site Patient ID:?[id number]. Site :?[id number] Study:?XRay-Hip Right POST OP RT HIP AND PELVIS-12/25/2023 2:32:40 PM Ordering Physician:Meagan Linares Final Report: Indication: Postop right JOSEMANUEL Technique: Pelvis and bilateral hip 3 view. Comparison: Intraoperative x-ray December 25, 2023 Findings/impression: Acute postoperative changes related to right total hip arthroplasty. Moderate adjacent soft tissue emphysema. No periprosthetic fracture or loosening. Postoperative changes related to left total hip arthroplasty is present. Dictated by Sally Mercado MD @ 12/26/2023 11:47:45 AM Signed by:?Sally Mercado MD @12/26/2023 11:47:45 AM (Electronic Signature)
--- NOTE | 2023-12-25 12:45 | CRLHL7_ITS ---
For Patients: As a result of the Century Cures Act, medical imaging exams and procedure reports are released immediately into your electronic medical record. You may view this report before your referring provider. If you have questions, please contact your health care provider. INDICATION: Right hip arthroplasty. Intraoperative evaluation. TECHNIQUE: Fluoroscopically guided intraoperative evaluation of a right hip arthroplasty. FINDINGS: A single spot image was obtained intraoperatively demonstrating a right hip arthroplasty. 41.1 seconds fluoroscopy time utilized. IMPRESSION: 41.1 seconds fluoroscopy time utilized intraoperatively. Dictated by Carlos Das MD @ 12/26/2023 11:26:20 AM (Electronically Signed)
--- NOTE | 2023-12-25 13:34 | PM.ORPRC ---
Procedure Note Date of procedure: 12/25/23 Procedure: PREOPERATIVE DIAGNOSIS: 1. Right hip osteoarthritis, severe, primary POSTOPERATIVE DIAGNOSIS: 1. Right hip osteoarthritis, severe, primary PROCEDURE: 1. Right total hip arthroplasty-anterior approach 2. 83276 - intraoperative fluoroscopy up to 1 hour. SURGEON: Vijay Ascencio MD. HONING MACHINE OPERATOR TOOL: Chance Damico PA-C; DONNIE Rodriguez - Of note, a skilled family practice physician assistant was critical for this case to aid in patient positioning, tissue retraction, limb manipulation/positioning, and closure. ANESTHESIA: Spinal anesthetic EBL: 400ml IMPLANTS: DePuy J&J uncemented total hip [employer] [place] cup size 50, hole eliminator, +0 neutral liner Actis stem, standard offset, size 7 +9 mm ceramic 32mm head COMPLICATIONS: None evident INDICATIONS: The patient is a pleasant 78-year-old female who has experienced severe right hip pain and difficulty bearing weight. Workup included x-rays which revealed severe osteoarthrosis in the hip. Given the deformity, the dysfunction, and the pain, as well as the failure of nonoperative management, recommendation was made for surgery. FINDINGS: Full-thickness chondral loss diffusely throughout the femoral head and acetabulum. Osteophytes around the acetabulum and femoral head/neck junction. Large effusion upon entering the joint. DESCRIPTION OF PROCEDURE: Following a thorough discussion of risks, benefits, and alternatives consent was obtained and the right hip was marked. The patient was brought to the operating room and placed supine on the operating table. Induction of anesthesia was undertaken. 1 g IV Ancef and 1 g tranexamic acid was administered within 1 hr of incision preoperatively. Proper time-out was performed identifying proper patient, site, procedure. The operative extremity was prepped and draped in the appropriate sterile fashion using ChloraPrep after the patient was positioned on the Alto table with head in neutral alignment and all bony prominences well padded. C-arm fluoroscopic imaging was utilized to confirm proper pelvis rotation and position, and to get true AP films of both the contralateral left, and the affected right hip. This is for comparison. A longitudinal incision was made starting approximately 1 cm distal to the ASIS, and 3-4 cm lateral. The incision was extended distally aiming toward the lateral border the patella. Sharp incision through skin and bovie cautery through the subcutaneous tissue allowed identification of the TFL fascia. This was sharply divided, and the fascia bluntly released from the muscle fibers as we dissected medial. Upon coming to the medial border, we were able to retract the TFL laterally, and penetrated the deeper fascia and identify the crossing circumflex vessels. These were ligated/cauterized. The rectus was elevated from the capsule, and retractors placed laterally and medially along the femoral neck to help with visualization of the capsule. We then performed an inverted T capsulotomy. The capsule was tagged for later repair. Retractors were placed inside the capsule. The femoral neck was visualized after releasing medially down to the lesser trochanter, along the saddle laterally, and up onto the acetabulum. The femoral neck cut was made in line with our preoperative templating. The head was removed in a single piece, and sized. We turned our attention to acetabular preparation. Initially, the labrum was resected from around the perimeter, the pulvinar was excised, allowing us to visualize the false wall. We started the reaming with a 43 mm reamer. This was medialized down to the true wall. We then enlarged our reamers sequentially up to one size less than the selected cup size. We trialed at the same size and found it to have an excellent fit. The selected cup was then opened, inserted, and impacted in line with the goal of 40? of abduction, and 20-25? of anteversion. This was confirmed on C-arm fluoroscopic imaging to be in the appropriate/goal position. Once the cup was placed we placed a hole eliminator and a liner consistent with preop planning. Attention was turned to the femoral preparation. The limb was extended, externally rotated, and adducted. The posteromedial capsule was released, as retractors were placed allowing excellent access to the proximal femur. Initially a box loader was followed by canal finder followed by various broaches. We broached sequentially up to the size noted above, found it to have excellent rotational control, and trialing various heads and necks, revealed that appropriate neck offset, and the above noted head size provided the greatest stability, and church of length, and offset. C-arm fluoroscopic imaging confirmed position of the stem, as well as leg lengths, which were compared with the pre procedure all fluoroscopic images. Trial implants were removed, the real femoral stem inserted, as was the appropriate head. After reducing, the leg was placed through range of motion and stability was confirmed anterior, posterior, and lateral. A 3 min Betadine soak was then performed, and thorough irrigation with normal saline followed. Closure of the capsule was performed with #1 PDS. Bleeding was confirmed to be controlled at this stage, and the TFL fascia was closed with #0 strata fix. Subcutaneous, and subcuticular closure was performed with 2-0 Vicryl and 4-0 Monocryl, respectively. Dressings were applied, and the patient was awoken from anesthesia and transferred the PACU in stable condition. A skilled family practice physician assistant was critical for this case to aid in patient positioning, tissue retraction, acetabular and proximal femoral exposure, limb manipulation/positioning, dislocation/relocation, patient safety, and closure. PLAN: 1. Weight bear as tolerated operative extremity. 2. 23 hr perioperative antibiotics. 3. Ice. 4. PT/OT consults for ambulation assistance/mobility education. 5. Social work consult for discharge planning. 6. DVT prophylaxis with at SCDs and Xarelto x5 days followed by aspirin for a total of 1 month..
[2023-12-25] MEDS: 0.9 % SODIUM CHLORIDE 500 ML 500 ML 100 ML IV (14:29)
--- NOTE | 2023-12-25 14:47 | P.IMCN_ITS ---
Date of Consult Patient: [facility] Patient Consult date: 12/25/23 Requesting Physician: Orthopedics Primary Care Provider: Barbara Monsalve MD Consult Narrative Reason for consult: Medical management post operatively Narrative: Piyush Wolf is a 78 year old female past medical history significant for for hypertension, recurrent urinary tract infections, osteoarthritis, steatosis of the liver, prolonged QT interval is POD#0 s/p right total hip arthroplasty, Dr. Montaño. There have been no perioperative complications or nursing concerns reported. Estimated total blood loss documented as 400 ml. Updated and reviewed the active medical problems, past medical history, past surgical history, social history, allergies and medications in our electronic EMR. Postoperatively, patient reports hip pain currently well managed. Feeling sleepy and would like to take a nap. Denies headache or dizziness. Denies chest pain or shortness of breath. No nausea, tolerating sips of clears currently. Review of Systems Narrative: REVIEW OF SYSTEMS: Complete review of systems performed and negative unless otherwise stated in HPI or below. PFSH PFS Medical History Hiatal hernia ?K44.9 - Diaphragmatic hernia without obstruction or gangrene (ICD-10) Hx of sepsis (~2018) ?Z86.19 - Personal history of other infectious and parasitic diseases (ICD- 10) Diverticulitis ?K57.92 - Diverticulitis of intestine, part unspecified, without perforation or abscess without bleeding (ICD-10) C. 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) ?Z96.642 - Presence of left artificial hip joint (ICD-10) History of lumpectomy ?Z98.890 - Other specified postprocedural states (ICD-10) Status post hysterectomy (02/09/09) ?Z90.710 - Acquired absence of both cervix and uterus (ICD-10) History of tympanoplasty of right ear ?Z98.890 - Other specified postprocedural states (ICD-10) History of surgical removal of ganglion cyst (10/03/11) ?Z98.890 - Other specified postprocedural states (ICD-10) History of partial surgical removal of colon ?Z90.49 - Acquired absence of other specified parts of digestive tract (ICD- 10) History of bilateral cataract extraction ?Z98.41 - Cataract extraction status, right eye (ICD-10) ?Z98.42 - Cataract extraction status, left eye (ICD-10) History of appendectomy (2018) ?Z90.49 - Acquired absence of other specified parts of digestive tract (ICD- 10) Family History Father Colorectal cancer Brother Diabetes Social History What is your current living situation?: I presently have a place to live Problems where you live: no known problems Problems where you live details: na In the past 12 months, utilities in danger of being shut off: no In past 12 months, lack of transportation kept you from medical appts, meetings, work, or getting things needed for daily living: no In the past 12 mos, have been you worried that your food would run out before you had money to buy more?: never true In the past 12 mos, the food you bought just didn't last and you didn't have money to buy more?: never true Smoking Status: Never smoker Do you use any of these nicotine containing products: None How often do you have a drink containing alcohol: 4 or more times a week Alcohol type: hard liquor How many standard drinks containing alcohol do you have on a typical day: 1 or 2 How often do you have six or more drinks on one occasion: Never AUDIT-C Alcohol total score: 4 Non-prescribed substance use: denies use Caffeine: Yes How often does anyone, including family, friends and others, physically hurt you : never How often does anyone, including family, friends and others, insult or talk down to you: never How often does anyone, including family, friends and others, threaten you with harm: never How often does anyone, including family, friends and others, scream or curse at you: never Little interest or pleasure in doing things: not at all Feeling down, depressed, or hopeless: not at all Meds Home Medications and Allergies Home Medications ?Medication ?Instructions ?Recorded ?Confirmed ?Type Bacillus coagulans 800 million cell PO DAILY 05/02/23 12/09/23 History cell tablet ascorbic acid (vitamin C) 1,000 mg 1 g PO DAILY 05/02/23 12/25/23 History capsule cholecalciferol (vitamin D3) 50 50 mcg PO DAILY 05/02/23 12/25/23 History mcg (2,000 unit) capsule milk thistle 500 mg capsule 1,000 mg PO DAILY 05/02/23 12/25/23 History lorazepam 0.5 mg tablet 0.5 mg PO BID PRN anxiety 12/25/23 12/25/23 History metoprolol succinate 25 mg 25 mg PO DAILY 12/25/23 12/25/23 History tablet,extended release 24 hr Allergies Allergy/AdvReac Type Severity Reaction Status Date / Time meperidine Allergy Severe Verified 12/25/23 10:19 metronidazole Allergy Severe urticaria Verified 12/25/23 10:19 morphine Allergy Severe Difficulty Verified 12/25/23 10:19 Breathing paroxetine Allergy Severe Verified 12/25/23 10:19 cephalexin Allergy Intermediate scratchy Verified 12/25/23 10:19 throat, abdominal cramping, dizziness latex Allergy Intermediate Verified 12/25/23 10:19 loratadine Allergy Intermediate Palpitation Verified 12/25/23 10:19 s pseudoephedrine Allergy Intermediate Palpitation Verified 12/25/23 10:19 s penicillin V Allergy Unknown Rash Verified 12/25/23 10:19 Sulfa (Sulfonamide Allergy Rash Verified 12/25/23 10:19 Antibiotics) Exam Narrative: Exam Narrative: PHYSICAL EXAM General: Pleasant, conversant, NAD HEENT: Normocephalic, atraumatic, sclera white, EOMI, oral mucosa moist Cardiovascular: RRR, S1S2. No pitting edema Pulmonary: CTA bilaterally without rhonchi, rales, expiratory wheezes. No dyspnea Abdominal: Soft, nondistended, NTTP Neurological: Alert, answering questions appropriately, cranial nerves intact, no focal findings Extremities: No gross joint deformity or swelling. Postoperative dressing in place, dry. Neurovascularly intact Skin: Warm, dry. Const: Vital Signs, click to edit/add: Vital Signs - 24 hr 12/25/23 10:26 12/25/23 11:56 12/25/23 12:00 Temperature 97.8 F Pulse Rate 80 61 65 Respiratory Rate 16 16 16 Blood Pressure 150/82 H 122/92 H 110/63 Pulse Oximetry 96 96 96 Oxygen Delivery Me thod Room Air Nasal Cannula Nasal Cannula Oxygen Flow Rate 2 2 12/25/23 12:05 12/25/23 14:10 12/25/23 14:15 Temperature 97.3 F L Pulse Rate 60 73 80 Respiratory Rate 16 12 16 Blood Pressure 120/85 110/69 107/59 L Pulse Oximetry 99 93 94 Oxygen Delivery Me thod Nasal Cannula Room Air Room Air Oxygen Flow Rate 2 12/25/23 14:20 12/25/23 14:25 12/25/23 14:30 Temperature Pulse Rate 60 60 70 Respiratory Rate 16 16 16 Blood Pressure 95/62 133/70 121/67 Pulse Oximetry 92 91 93 Oxygen Delivery Me thod Room Air Room Air Room Air Oxygen Flow Rate 12/25/23 14:35 Temperature 97.0 F L Pulse Rate 68 Respiratory Rate 16 Blood Pressure 108/62 Pulse Oximetry 97 Oxygen Delivery Me thod Room Air Oxygen Flow Rate Labs Labs: Short CBC 12/25/23 Range/Units 11:57 Hgb 15.4 (12.0-16.0) gm/dL Assessment and Plan Assessment and plan (1) Osteoarthritis of right hip: Problem comment: -POD#0 s/p R JOSEMANUEL, Dr. Montaño -perioperative management including pain management and anticoagulation per Orthopedic surgery -encourage postoperative pulmonary hygiene -PT OT consults -plan to discharge home tomorrow with spouse Status: Acute (2) HTN (hypertension): Problem comment: -resume metoprolol tomorrow morning with parameters as pressures tolerate Status: Acute Total Time Spent Total Time Spent: Total time spent caring for the patient today was 45 minutes. This includes time spent for the visit reviewing the chart, time spent during the visit, time spent after the visit and documentation and planning in coordination of care.
--- NOTE | 2023-12-25 14:48 | W.ANESCHARGE ---
Anesthesia Charges Start Date/Time Anesthesia Start Date: 12/25/23 Anesthesia Start Time: 12:11 Stop Date/Time Anesthesia Stop Date: 12/25/23 Anesthesia Stop Time: 14:12
[2023-12-25] MEDS: HYDROmorphone 0.5 mg/0.5 ml inj IVP (15:11)
[2023-12-25] MEDS: CEFAZOLIN 1 GM in 0.9 % SODIUM CHLORIDE Mini-bag 100 ML IVPB (18:25)
[2023-12-25] MEDS: ONDANSETRON 2 MG/ML inj 4 MG IVP (18:33)
[2023-12-25] MEDS: OXYCODONE 5 MG TABLET PO (18:33)
[2023-12-26] MEDS: CEFAZOLIN 1 GM in 0.9 % SODIUM CHLORIDE Mini-bag 100 ML IVPB (02:40)
[2023-12-26] MEDS: ACETAMINOPHEN 500 MG TABLET 1000 MG PO ×2 (03:12→10:31)
[2023-12-26 03:15] VITALS: BP 120/66; PULSE 58; RESP 16; TEMP 36.3; O2SAT 94
[2023-12-26] MEDS: OXYCODONE 5 MG TABLET PO ×2 (05:33→08:20)
--- NOTE | 2023-12-26 05:55 | PC.NURSE ---
End of shift [id number]: A&O, pleasant and cooperative. pt rating pain in hip 2-5/10. PRN oxycodone given x1 for pain control. CMS intact. strong plantar/dorsi flexion. dressing to hip c/d/i. VSS w/ sats >90% on RA. pt denies any lightheaded/dizziness with movement and ambulation. A1 w/ walker and GB to bathroom. tolerating well. saline locked. tolerating oral intake. Using tyesha light appropriately.
[2023-12-26 06:26] LABS: Hematocrit 35.7 % (33.0-51.0); Hemoglobin* 11.7 gm/dL (12.0-16.0); Immature Granulocytes Abs Auto 0.01 K/uL (0.00-0.30); Immature Granulocytes Pct Auto 0.1 %; Lymphocytes Percent Auto 5.5 % (20-44); Mean Corpuscular HGB Conc 33 gm/dL (32-36); Mean Corpuscular Hemoglobin 32 pg (26-34); Mean Corpuscular Volume 97 fL (80-100); Monocytes Percent Auto 6.8 % (0.0-11.0); Neutrophils Percent Auto 87.6 % (42.0-72.0); Platelet Count* 222 K/uL (140-440); RDW Coefficient of Variation % 13.4 % (11.5-15.5); Red Blood Count 3.68 m/uL (4.00-5.20); White Blood Count* 8.65 K/uL (4.50-11.00)
[2023-12-26 06:27] LABS: Slide Review Reflex No
[2023-12-26 06:39] LABS: Potassium* 3.9 mmol/L (3.6-5.1); Sodium* 134 mmol/L (135-149)
[2023-12-26 06:41] LABS: Creatinine* 0.4 mg/dL (0.5-1.5); Est. Creatinine Clearance* 39.59; Estimated Glomerular Filt Rate 103 ml/min
[2023-12-26 06:42] LABS: Blood Urea Nitrogen* 8 mg/dL (7-30)
[2023-12-26 07:00] VITALS: BP 105/64; PULSE 75; RESP 16; RESP 18; TEMP 36.8; O2SAT 91
[2023-12-26] MEDS: RIVAROXABAN 10 MG TABLET PO (08:23)
--- NOTE | 2023-12-26 08:23 | PM.ORPN ---
Subjective Subjective Date Seen: 12/26/23 Principal diagnosis: Status postop day 1, right total hip arthroplasty - anterior approach Interval history: Patient reports doing well. No acute events over night. Pain managed with scheduled and PRN medications, ice. DVT prophylaxis: Rivaroxaban, SCDs, walking. Denies fevers, chills, aches, N/V, CP, SOB/ACE, or lightheadedness. No flatus to date. She has had her left hip replaced, thus understands the postoperative route. Ortho Exam Narrative Exam Narrative: -Patient appears comfortable in bed; no apparent acute distress. present. -Alert and oriented times 3 -Operative hip mildly swollen; soft tissues supple; no obvious erythema. Ecchymosis minimal. Warmth appropriate -Surgical dressing clean, dry, intact; no obvious drainage, no erythematous streaking peripheral to the bandage -Bilateral calves soft and supple; no significant swelling, edema, tenderness, erythema, discoloration, warmth, or palpable cords -2+ DP/PT pulses, intact dermatomes and myotomes distally (5/5 strength). No numbness about the lateral femoral cutaneous nerve distribution. Const Vital Signs, click to edit/add: Vital Signs - 24 hr 12/25/23 10:26 12/25/23 11:56 12/25/23 12:00 Temperature 97.8 F Pulse Rate 80 61 65 Pulse Rate [Pulse Oximeter] Respiratory Rate 16 16 16 Blood Pressure 150/82 H 122/92 H 110/63 Blood Pressure [Left Arm] Pulse Oximetry 96 96 96 Oxygen Delivery Method Room Air Nasal Cannula Nasal Cannula Oxygen Flow Rate 2 2 12/25/23 12:05 12/25/23 14:10 12/25/23 14:15 Temperature 97.3 F L Pulse Rate 60 73 80 Pulse Rate [Pulse Oximeter] Respiratory Rate 16 12 16 Blood Pressure 120/85 110/69 107/59 L Blood Pressure [Left Arm] Pulse Oximetry 99 93 94 Oxygen Delivery Method Nasal Cannula Room Air Room Air Oxygen Flow Rate 2 12/25/23 14:20 12/25/23 14:25 12/25/23 14:30 Temperature Pulse Rate 60 60 70 Pulse Rate [Pulse Oximeter] Respiratory Rate 16 16 16 Blood Pressure 95/62 133/70 121/67 Blood Pressure [Left Arm] Pulse Oximetry 92 91 93 Oxygen Delivery Method Room Air Room Air Room Air Oxygen Flow Rate 11/06/24 14:35 12/25/23 14:45 12/25/23 15:00 Temperature 97.0 F L 95.5 F L 95.6 F L Pulse Rate 68 62 67 Pulse Rate [Pulse Oximeter] Respiratory Rate 16 16 16 Blood Pressure 108/62 106/61 105/74 Blood Pressure [Left Arm] Pulse Oximetry 97 96 95 Oxygen Delivery Method Room Air Room Air Room Air Oxygen Flow Rate 12/25/23 15:00 12/25/23 15:00 12/25/23 15:15 Temperature 95.9 F L Pulse Rate 52 L Pulse Rate [Pulse Oximeter] 62 Respiratory Rate 16 16 16 Blood Pressure 100/62 Blood Pressure [Left Arm] Pulse Oximetry 100 94 Oxygen Delivery Method Nasal Cannula Room Air Oxygen Flow Rate 1 12/25/23 15:30 12/25/23 15:45 12/25/23 16:15 Temperature 96.2 F L 96.2 F L 96.1 F L Pulse Rate 57 L 64 75 Pulse Rate [Pulse Oximeter] Respiratory Rate 16 16 16 Blood Pressure 93/68 96/63 126/78 Blood Pressure [Left Arm] Pulse Oximetry 87 L 94 98 Oxygen Delivery Method Room Air Nasal Cannula Nasal Cannula Oxygen Flow Rate 2 2 12/25/23 16:45 12/25/23 17:45 12/25/23 18:45 Temperature Pulse Rate 75 71 72 Pulse Rate [Pulse Oximeter] Respiratory Rate 16 16 16 Blood Pressure 125/78 131/89 132/79 Blood Pressure [Left Arm] Pulse Oximetry 100 99 99 Oxygen Delivery Method Nasal Cannula Nasal Cannula Room Air Oxygen Flow Rate 2 2 12/25/23 20:45 12/25/23 23:29 12/25/23 23:36 Temperature 97.3 F L Pulse Rate 79 Pulse Rate [Pulse Oximeter] 64 Respiratory Rate 16 14 14 Blood Pressure 124/72 Blood Pressure [Left Arm] 100/57 L Pulse Oximetry 99 93 93 Oxygen Delivery Method Room Air Room Air Room Air Oxygen Flow Rate 12/26/23 03:15 12/26/23 07:00 Temperature 97.4 F L 98.3 F Pulse Rate Pulse Rate [Pulse Oximeter] 58 L 75 Respiratory Rate 16 16 Blood Pressure Blood Pressure [Left Arm] 120/66 105/64 Pulse Oximetry 94 91 Oxygen Delivery Method Room Air Room Air Oxygen Flow Rate Assessment and Plan Assessment and plan (1) Osteoarthritis of right hip: Problem details: -POD#1 s/p R JOSEMANUEL, Dr. Montaño -perioperative management including pain management and anticoagulation per Orthopedic surgery -encourage postoperative pulmonary hygiene -PT OT consults -plan to discharge home tomorrow with spouse Status: Acute (2) HTN (hypertension): Problem details: -resume metoprolol tomorrow morning with parameters as pressures tolerate Status: Acute Plan - Complete 23 hour perioperative antibiotics. - PT/OT consult for education and assistance. - Social work consult for discharge planning - Prescribed analgesics as needed - DVT prophylaxis: Rivaroxaban, walking, and SCDs - Anticipation is for discharge to home with family/friends today 12/26/2023 if the patient remains medically stable, pain is controlled, and they are safe with mobilization.
--- NOTE | 2023-12-26 12:45 | PC.NURSE ---
The patient discharged home with her this AM. SBA w/ RW. Tolerating pain well with PRN medications. All discharge teaching was reviewed with her and spouse. Rebeca PAULINO BSN
== END 2023-12-26 10:40 | disposition home or self-care (01) ==
LOC: OR 09:50 → MEDSURG 09:54
PROVIDERS: Nurse Anesthetist, Certified Registered; PCP Family Medicine; Visit Provider Orthopaedic Surgery Sports Medicine
PROC: (CPT 27130; principal; 2023-12-25 12:00)
DX: M16.11 Unilateral primary osteoarthritis, right hip (principal); G89.18 Other acute postprocedural pain; I10 Essential (primary) hypertension; R94.31 Abnormal electrocardiogram [ECG] [EKG]; K76.0 Fatty (change of) liver, not elsewhere classified; Z96.642 Presence of left artificial hip joint; Z87.440 Personal history of urinary (tract) infections
CPT/HCPCS: 27130; 01214; 36415; 64447; 73501; 76000; 76942; 82565; 84132; 84295; 84520; 85018; 85025; 86850; 86900; 86901; 97110; 97116; 97161; 97165; 97530; 97535; A9270; C1776; J0690; J1100; J1171; J2250; J2371; J2405; J2704; J2795; J3010; J7030; J7120

== ENCOUNTER 2024-01-29 14:45 | Outpatient (RCR) | payer MEDICARE, SELFPAY ==
--- NOTE | 2024-01-01 16:41 | PT.OPE ---
PT [facility] Outpatient Eval PT [facility] Outpatient Eval Start: 01/01/24 12:46 Freq: Status: Active Protocol: Document 01/01/24 16:40 CJT (Rec: 01/01/24 16:41 CJT [id number]) E-signed By Hai Lunsford PT Physical Therapy Outpatient Evaluation Insurance Information Recert Due Date 03/31/24 Insurance Name Medicare B Medical Diagnosis R JOSEMANUEL Treating Diagnosis R JOSEMANUEL Referring Mookie Choi Subjective Preferred Name Piyush Subjective Pt presents 8 days post-op R JOSEMANUEL performed by Dr. Ascencio. Pt doing well, managing her pain with oxy at this time. Ambulating with FWW. Pt has been performing exercises at home. Had significant back and hamstring spasms her first few days after surgery. Has been trying to walk frequently throughout the day and notes that she has not had much trouble walking but has pain of the anterior R hip. Rates her pain as 8/10 at this time. Pain Comments 09/27 Date of Last Physician Visit 12/31/23 Date of Surgery (If applicable) 12/25/23 Current Work Status Retired Precautions Therapy Limitations/Systems Review Not Limited Objective Other/Pertinent Objective Quad set: good R hip flexion: 90 degrees passively, minimal pain noted Incision: incision clean, dry, and in tact, absent of redness and drainage. Skin: Swelling: pt presents with swelling of the anterior R thigh, appropriate at this time Gait: ambulates with FWW, fair form throughout today's visit Assessment Assessment/Impression Piyush is a very pleasant 78 year old female who presents to our clinic for evaluation and treatment of R JOSEMANUEL (DOS: 12/25/23). Pt is doing quite well and I have no concerns for her at this time. She is ambulating with minimal gait deviations with use of her FWW . She has been diligent with her HEP at home up to this point and walking hourly. The nature of the pts condition was explained and all questions were answered to the pts satisfaction. Skilled PT services are medically necessary to address deficits and return patient to highest level of function. Recommend physical therapy sessions 1-2/ week for 4-12 weeks. Pt agrees with this plan. Printout of HEP was given for I completion and pt gives verbal understanding of each exercise . Primary Functional Limitations Walking, standing, stairs, bed mobility Plan of Care Rehabilitation Potential Excellent Physical Therapy Goals STG - To be completed in 3 weeks: 1. Pt will report and demonstrate proper performance of HEP and surgical precautions to allow for appropriate recovery following surgery and reduce risk of dislocation. 2. Pt will demonstrate appropriate use of ADs at all times to allow for ease of ambulation and reduce risk of falls. 3. Pt will demonstrate ability to perform all transfers and negotiate stairs I so that he may move throughout his house safely by himself. LTG - To be completed in 8 weeks: 1. Pt to be I with HEP so that they may I mange progression of symptoms. 2. Pt will demonstrate 5/5 MMT for all hip motions without pain to provide greater support to pelvis and lumbar spine with functional activities. 3. Pt will ambulation without AD and no gait deviations to reduce straining forces on pelvis and lumbar spine so that they may returning to walking for pleasure with their family. Treatment Plan/Direct Interventions Electrical Stimulation,Gait Training,Heat,Ice/Cold/ Vasopneumatic,Joint Mobilization,Manual Therapy, Neuromuscular Re-ed,Self-Care/ Home Management,Therapeutic Activities,Therapeutic Exercises Frequency/Duration 1/week for 4-8 weeks Patient Will Be Discharged From Therapy Completion of LTG(s),Skills Plateau,Independent w/HEP, Independently Progressing Evaluation Billing Untimed Code Treatment Minutes 10 PT Eval No Charge No Complexity Low Certification Information Initial Certification Date 01/01/24 Ending Certification Date 03/31/24 Provider Signature Required Yes Provider Signature Shows Agreement With POC & Medical Necessity Physician NPI Number Write NPI# Here Physician Comment/Change : Physician Signature & Date Requested Please Sign/Date Here
== END 2024-05-25 14:12 | disposition home or self-care (01) ==
PROVIDERS: PCP Family Medicine; Visit Provider Orthopaedic Surgery Sports Medicine
DX: M16.11 Unilateral primary osteoarthritis, right hip (principal); Z96.641 Presence of right artificial hip joint; Z51.89 Encounter for other specified aftercare
CPT/HCPCS: 97110; 97140; 97161

== ENCOUNTER 2024-12-22 13:43 | Outpatient (CLI) | payer MEDICARE, SELFPAY | END 2024-12-22 13:44 | disposition home or self-care (01) | PROVIDERS: PCP Family Medicine; Visit Provider Family Medicine | DX: E03.8 Other specified hypothyroidism (principal); I10 Essential (primary) hypertension; K20.0 Eosinophilic esophagitis; K76.0 Fatty (change of) liver, not elsewhere classified; M81.0 Age-related osteoporosis without current pathological fracture; Z11.59 Encounter for screening for other viral diseases | CPT/HCPCS: 80053; 80061; 82043; 82570; 84439; 84443; 86803 ==

== ENCOUNTER 2025-01-26 14:15 | Outpatient (CLI) | payer MEDICARE, SELFPAY | END 2025-01-26 14:16 | disposition home or self-care (01) | LOC: NFLDREF 01-27 11:49 | PROVIDERS: PCP Family Medicine; Referring Provider Family Medicine; Visit Provider Family Medicine | DX: K76.0 Fatty (change of) liver, not elsewhere classified (principal) | CPT/HCPCS: 80053 ==

== ENCOUNTER 2025-01-28 13:37 | Outpatient (CLI) | payer MEDICARE, SELFPAY ==
--- NOTE | 2025-01-28 14:00 | CRLHL7_ITS ---
For Patients: As a result of the Cures Act, medical imaging exams and procedure reports are released immediately into your electronic medical record. You may view this report before your referring provider. If you have questions, please contact your health care provider. Examination: US abdominal aorta Indication: Personal history of nicotine dependence. Abdominal aortic aneurysm screening. Technique: Galeana scale and color Doppler images of the aorta and common iliac arteries are obtained. Comparison: None Findings: Proximal aorta: 2.1 x 1.9 cm Mid aorta: 1.8 x 1.7 cm Distal aorta: 1.5 x 2.3 cm Right common iliac artery: 1.1 x 1.1 cm Left common iliac artery: 0.8 x 0.8 cm Impression: No abdominal aortic aneurysm. Dictated by Danny Dangelo MD @ 01/28/2025 2:45:25 PM (Electronically Signed)
--- NOTE | 2025-01-28 15:00 | CRLHL7_ITS ---
For Patients: As a result of the Century Cures Act, medical imaging exams and procedure reports are released immediately into your electronic medical record. You may view this report before your referring provider. If you have questions, please contact your health care provider. DXA BONE MINERAL DENSITY STUDY Current height (in): 64. Weight (lb): 145. Menopause age: Not provided. Ethnicity: White. 1. Have you had a previous hip or vertebral fracture? No. 2. Have you had any fractures during your adult life which did not result from significant trauma (e.g., auto accident)? No. 3. Did either of your parents have a hip fracture? No. 4. Do you smoke? No. 5. Have you ever taken Glucocorticoids? Yes. 6. Do you have rheumatoid arthritis? No. 7. Do you have secondary osteoporosis? Yes. 8. Do you drink 3 or more alcoholic drinks per day? No. 9. Are you being treated for osteoporosis? No. 10. Have you ever taken any of the following medications: Actonel, Evista, Fosamax, Miacalcin, Reclast, Boniva, Forteo, HRT (i.e. estrogen/hormone therapy), Protelos, Prolia, Vitamin D, Calcium, other ??? please specify. ANSWER: Yes, vitamin D. 11. Do you have any of the following medical conditions: Anorexia or bulimia, asthma or emphysema, end stage renal disease, hyperparathyroidism, any seizure disorders, cancer, inflammatory bowel diseases, hysterectomy, other ??? please specify. ANSWER: Yes, hysterectomy. 12. What was your maximum height (inches)? 65.5. 13. Do you perform weight bearing exercise regularly? No. 14. Do you regularly consume dairy products? No. 15. Do you drink caffeinated beverages? Yes. 16. At what age did your period start? 13. 17. Are you premenopausal? No. 18. How many full term pregnancies have you had? 2. 19. Have you ever missed your period for more than 6 months in a row (not including or menopause)? No. TECHNIQUE: Bone mineral density study was performed using the [employer]. FINDINGS: The results of the study expressed as bone mineral density (BMD) are as follows: Lumbar spine L1, L2, L4: BMD: 1.012 g/cm2. T-score: -0.2. Z-score: 2.3. Radius: Right 33%: BMD: 0.610 g/cm2. T-score: -1.4. Z-score: 1.5. IMPRESSION: Osteopenia. *Comparison exams done prior to 07/2019 were performed on different unit, [facility]. COMPARISON: Compared with scan of 05/15/2018, the bone mineral density has increased by 5.7 percent at the spine. Compared with scan of 07/31/2010, the bone mineral density has decreased by 2.2 percent at the spine. Danny Dangelo M.D. Diagnostic Radiologist [email or web address] SHERMAN/Dictated by: Danny Dangelo MD @ 01/29/2025 9:45:00 AM (Electronically Signed)
== END 2025-01-28 13:38 | disposition home or self-care (01) ==
PROVIDERS: PCP Family Medicine; Visit Provider Family Medicine
DX: Z13.6 Encounter for screening for cardiovascular disorders (principal); Z72.0 Tobacco use; M81.0 Age-related osteoporosis without current pathological fracture; M85.89 Other specified disorders of bone density and structure, multiple sites
CPT/HCPCS: 76775; 77080